=== PATIENT | female | born 1960 | race Two or more races ===

== ENCOUNTER 2020-12-20 06:32 | Day surgery (SDC) | payer OTHER ==
[~2020-12-20 06:32] MED LIST: DICY20TA PO; PEPCID AC10 MG PO; PROBIOTIC1 EAC2 PO; TYLENOL ARTHRI650 MG PO
[2020-12-20] MEDS ORDERED: PERCOCET 5-3251 EACH PO (10:14)
== END 2020-12-20 13:45 | disposition home or self-care (01) ==
LOC: CIR.AMB 06:32
PROVIDERS: ATTEND Surgery
DX: D35.1 Benign neoplasm of parathyroid gland (principal); Z20.822 Contact with and (suspected) exposure to COVID-19

== ENCOUNTER 2024-11-25 05:00 | Day surgery (SDC) | payer OTHER ==
[~2024-11-25 05:00] MED LIST changes: +PERCOCET 5-3251 EACH PO
[2024-11-25] MEDS ORDERED: CEFAZOLIN SODIUM 1,000 MG VIAL ONE (06:38)
[2024-11-25] MEDS ORDERED: POVIDONE-IODINE 118 ML BOTT TOP ONE (07:05)
== END 2024-11-25 11:55 | disposition home or self-care (01) ==
LOC: CIR.AMB 05:00
PROVIDERS: ATTEND Obstetrics & Gynecology
DX: N84.0 Polyp of corpus uteri (principal)